=== PATIENT | male | born 1950 | race Caucasian/White ===

== ENCOUNTER 2021-01-23 10:40 | Outpatient (RCR) | payer MEDICARE ==
[2021-01-23 14:17] LABS: BASOPHILS # (AUTO) 0.1 (0.0-0.1); BASOPHILS % 0.9 % (0.0-1.0); EOSINOPHILS # (AUTO) 0.2 (0.0-0.4); HEMATOCRIT 31.1 % (38.2-49.6); LYMPHOCYTES # (AUTO) 1.8 (1.0-3.2); MEAN CORPUSCULAR HEMOGLOBIN 30.7 pg (28-32); MEAN CORPUSCULAR HGB CONC 32.2 g/dL (31-35); MEAN CORPUSCULAR VOLUME 95.4 fL (81-99); MONOCYTES # (AUTO) 0.9 (0.2-0.8); MONOCYTES % 13.3 % (4.4-11.3); NEUTROPHILS % 57.4 % (38.7-80.0); PLATELET COUNT 243 x10e3/uL (140-360); RED BLOOD COUNT 3.26 x10e6/uL (4.3-5.7); RED CELL DISTRIBUTION WIDTH 13.4 % (11.7-14.4)
[2021-01-23 14:35] LABS: ALBUMIN 3.8 g/dL (3.5-5.0); ANION GAP 13.9 mmol/L (8-16); CREATININE, SERUM 1.62 mg/dL (0.72-1.25); POTASSIUM 3.9 mmol/L (3.5-5.1)
[2021-01-23] MEDS ORDERED: MINERAL OIL/PETROLAT/GLYCERI 6OZ BTL ONE (16:25)
[2021-02-10] MEDS ORDERED: MINERAL OIL/PETROLAT/GLYCERI 6OZ BTL ONE (15:05)
== END 2021-01-24 ==
LOC: WCC 10:40
PROVIDERS: ATTEND Internal Medicine Infectious Disease
DX: I89.0 Lymphedema, not elsewhere classified (principal); R60.0 Localized edema; I10 Essential (primary) hypertension
CPT/HCPCS: 36415; 80053; 83036; 84134; 85025

== ENCOUNTER → 2021-02-09 | Outpatient (CLI) | payer MEDICARE | LOC: RAD 13:13 | PROVIDERS: ATTEND Internal Medicine Infectious Disease | DX: R60.0 Localized edema (principal) | CPT/HCPCS: 93925; 93970 ==

== ENCOUNTER 2021-02-10 10:35 | Outpatient (RCR) | payer MEDICARE | END 2021-02-24 | LOC: WCC 10:35 | PROVIDERS: ATTEND Internal Medicine Infectious Disease | DX: I89.0 Lymphedema, not elsewhere classified (principal); R60.0 Localized edema; G89.4 Chronic pain syndrome; N18.31 Chronic kidney disease, stage 3a; I10 Essential (primary) hypertension; J99 Respiratory disorders in diseases classified elsewhere; J43.9 Emphysema, unspecified; I50.9 Heart failure, unspecified; J40 Bronchitis, not specified as acute or chronic; G90.09 Other idiopathic peripheral autonomic neuropathy; E66.3 Overweight; F17.219 Nicotine dependence, cigarettes, with unspecified nicotine-induced disorders ==

== ENCOUNTER 2021-04-14 11:46 | Outpatient (RCR) | payer MEDICARE ==
[2021-04-07 12:02] LABS: BASOPHILS % 0.4 % (0.0-1.0); EOSINOPHILS # (AUTO) 0.1 (0.0-0.4); EOSINOPHILS % 0.7 % (0.0-6.0); HEMATOCRIT 35.3 % (38.2-49.6); HEMOGLOBIN 11.2 g/dL (14.0-18.0); LYMPHOCYTES # (AUTO) 1.8 (1.0-3.2); LYMPHOCYTES % 17.7 % (18.0-39.1); MEAN CORPUSCULAR HEMOGLOBIN 29.2 pg (28-32); MEAN CORPUSCULAR HGB CONC 31.7 g/dL (31-35); MEAN CORPUSCULAR VOLUME 92.2 fL (81-99); MONOCYTES # (AUTO) 1.1 (0.2-0.8); NEUTROPHILS # (AUTO) 6.9 (2.1-6.9); NEUTROPHILS % 69.5 % (38.7-80.0); PLATELET COUNT 310 x10e3/uL (140-360); RED BLOOD COUNT 3.83 x10e6/uL (4.3-5.7); RED CELL DISTRIBUTION WIDTH 12.6 % (11.7-14.4)
[2021-04-07 12:28] LABS: CREATININE, SERUM 1.56 mg/dL (0.72-1.25)
== END 2021-04-24 ==
LOC: WCC 11:46
PROVIDERS: ATTEND Internal Medicine Infectious Disease
DX: I70.239 Atherosclerosis of native arteries of right leg with ulceration of unspecified site (principal); L97.911 Non-pressure chronic ulcer of unspecified part of right lower leg limited to breakdown of skin; I82.491 Acute embolism and thrombosis of other specified deep vein of right lower extremity; L03.115 Cellulitis of right lower limb; J99 Respiratory disorders in diseases classified elsewhere; I70.203 Unspecified atherosclerosis of native arteries of extremities, bilateral legs; I89.0 Lymphedema, not elsewhere classified; R60.0 Localized edema; N18.31 Chronic kidney disease, stage 3a; I10 Essential (primary) hypertension; G89.4 Chronic pain syndrome; E66.3 Overweight; G90.09 Other idiopathic peripheral autonomic neuropathy; I50.9 Heart failure, unspecified; J43.9 Emphysema, unspecified; J45.998 Other asthma; F17.219 Nicotine dependence, cigarettes, with unspecified nicotine-induced disorders
CPT/HCPCS: 36415; 82565; 84520; 85025; 87071; 87075; 87186; 87205

== ENCOUNTER 2021-04-20 13:55 | Emergency (ER) | payer MEDICARE ==
[~2021-04-20] VITALS: Ht 175.3 cm; Wt 104.3 kg
[2021-04-20 16:13] LABS: BASOPHILS # (AUTO) 0.1 (0.0-0.1); BASOPHILS % 0.9 % (0.0-1.0); EOSINOPHILS # (AUTO) 0.2 (0.0-0.4); EOSINOPHILS % 2.8 % (0.0-6.0); HEMATOCRIT 34.6 % (38.2-49.6); HEMOGLOBIN 10.6 g/dL (14.0-18.0); LYMPHOCYTES # (AUTO) 2.3 (1.0-3.2); LYMPHOCYTES % 27.7 % (18.0-39.1); MEAN CORPUSCULAR HEMOGLOBIN 28.8 pg (28-32); MEAN CORPUSCULAR HGB CONC 30.6 g/dL (31-35); MONOCYTES # (AUTO) 0.8 (0.2-0.8); MONOCYTES % 10.1 % (4.4-11.3); NEUTROPHILS # (AUTO) 4.7 (2.1-6.9); NEUTROPHILS % 57.9 % (38.7-80.0); PLATELET COUNT 256 x10e3/uL (140-360); RED BLOOD COUNT 3.68 x10e6/uL (4.3-5.7); RED CELL DISTRIBUTION WIDTH 13.5 % (11.7-14.4)
[2021-04-20 16:21] LABS: INR 0.99; PARTIAL THROMBOPLASTIN TIME 25.7 seconds (23.8-35.5); PROTHROMBIN TIME 13.8 seconds (11.9-14.5)
[2021-04-20 16:31] LABS: ALBUMIN 3.4 g/dL (3.5-5.0); ALBUMIN/GLOBULIN RATIO 0.8 (0.8-2.0); ANION GAP 15.1 mmol/L (8-16); CALCIUM 9.2 mg/dL (8.4-10.2); CREATININE, SERUM 1.44 mg/dL (0.72-1.25); POTASSIUM 4.1 mmol/L (3.5-5.1)
== END 2021-04-20 17:52 | disposition home or self-care (01) ==
LOC: ER 13:55
DX: L03.115 Cellulitis of right lower limb (principal); M25.562 Pain in left knee; S86.812A Strain of other muscle(s) and tendon(s) at lower leg level, left leg, initial encounter; I10 Essential (primary) hypertension; J44.9 Chronic obstructive pulmonary disease, unspecified; J45.909 Unspecified asthma, uncomplicated; F17.210 Nicotine dependence, cigarettes, uncomplicated
CPT/HCPCS: 36415; 80053; 85025; 85610; 85730; 93971; 99283

== ENCOUNTER → 2021-04-20 | Outpatient (CLI) | payer MEDICARE ==
[~2021-04-20] MED LIST: SODIUM CHLORIDE 0.9% 500ML 500 ML ONE
[2021-04-20 13:03] LABS: CREATININE, SERUM 1.59 mg/dL (0.72-1.25)
== END ==
LOC: DX 11:58
PROVIDERS: ATTEND Internal Medicine Infectious Disease
DX: I70.203 Unspecified atherosclerosis of native arteries of extremities, bilateral legs (principal)
CPT/HCPCS: 36415; 36569; 71045; 82565; 84520; J7040

== ENCOUNTER 2021-05-08 13:28 | Outpatient (RCR) | payer MEDICARE ==
[2021-05-08] MEDS ORDERED: MINERAL OIL/PETROLAT/GLYCERI 6OZ BTL ONE (13:31)
== END 2021-05-25 ==
LOC: WCC 13:28
PROVIDERS: ATTEND Internal Medicine Infectious Disease
DX: L03.115 Cellulitis of right lower limb (principal); L97.911 Non-pressure chronic ulcer of unspecified part of right lower leg limited to breakdown of skin; I82.491 Acute embolism and thrombosis of other specified deep vein of right lower extremity; I89.0 Lymphedema, not elsewhere classified; I70.203 Unspecified atherosclerosis of native arteries of extremities, bilateral legs; I70.239 Atherosclerosis of native arteries of right leg with ulceration of unspecified site; R60.0 Localized edema; G89.4 Chronic pain syndrome; N18.31 Chronic kidney disease, stage 3a; B96.5 Pseudomonas (aeruginosa) (mallei) (pseudomallei) as the cause of diseases classified elsewhere; B96.89 Other specified bacterial agents as the cause of diseases classified elsewhere; E66.3 Overweight; G90.09 Other idiopathic peripheral autonomic neuropathy; I10 Essential (primary) hypertension; I50.9 Heart failure, unspecified; J99 Respiratory disorders in diseases classified elsewhere; J44.9 Chronic obstructive pulmonary disease, unspecified; J40 Bronchitis, not specified as acute or chronic; F17.219 Nicotine dependence, cigarettes, with unspecified nicotine-induced disorders

== ENCOUNTER 2021-06-09 09:59 | Outpatient (RCR) | payer MEDICARE ==
[~2021-06-09 09:59] MED LIST changes: +MINERAL OIL/PETROLAT/GLYCERI 2OZ CRM ONE; -SODIUM CHLORIDE 0.9% 500ML 500 ML ONE; +TRYPSIN/BALSAM PERU/CASTOR OIL ONE
== END 2021-06-24 ==
LOC: WCC 09:59
PROVIDERS: ATTEND Internal Medicine Infectious Disease
DX: L03.115 Cellulitis of right lower limb (principal); B96.5 Pseudomonas (aeruginosa) (mallei) (pseudomallei) as the cause of diseases classified elsewhere; B96.89 Other specified bacterial agents as the cause of diseases classified elsewhere; G90.09 Other idiopathic peripheral autonomic neuropathy; I82.491 Acute embolism and thrombosis of other specified deep vein of right lower extremity; I89.0 Lymphedema, not elsewhere classified; I70.203 Unspecified atherosclerosis of native arteries of extremities, bilateral legs; R60.0 Localized edema; G89.4 Chronic pain syndrome; N18.31 Chronic kidney disease, stage 3a; I10 Essential (primary) hypertension; I50.9 Heart failure, unspecified; J45.998 Other asthma; J99 Respiratory disorders in diseases classified elsewhere; E66.3 Overweight; J43.9 Emphysema, unspecified; F17.219 Nicotine dependence, cigarettes, with unspecified nicotine-induced disorders

== ENCOUNTER 2022-03-19 10:04 | Outpatient (RCR) | payer MEDICARE ==
[2022-03-19] MEDS ORDERED: LIDOCAINE VISC 2% SOLN 15 ML UDC ONE (12:40)
== END 2022-03-27 ==
LOC: WCC 10:04
PROVIDERS: ATTEND Internal Medicine Infectious Disease
DX: L89.612 Pressure ulcer of right heel, stage 2 (principal); I87.311 Chronic venous hypertension (idiopathic) with ulcer of right lower extremity; L97.811 Non-pressure chronic ulcer of other part of right lower leg limited to breakdown of skin; I82.491 Acute embolism and thrombosis of other specified deep vein of right lower extremity; I70.203 Unspecified atherosclerosis of native arteries of extremities, bilateral legs; I87.2 Venous insufficiency (chronic) (peripheral); R60.0 Localized edema; G89.4 Chronic pain syndrome; N18.31 Chronic kidney disease, stage 3a; I50.9 Heart failure, unspecified; I10 Essential (primary) hypertension; J99 Respiratory disorders in diseases classified elsewhere; J45.998 Other asthma; J44.9 Chronic obstructive pulmonary disease, unspecified; G90.09 Other idiopathic peripheral autonomic neuropathy; E66.3 Overweight; R26.89 Other abnormalities of gait and mobility; F17.219 Nicotine dependence, cigarettes, with unspecified nicotine-induced disorders

== ENCOUNTER 2022-04-13 11:59 | Outpatient (RCR) | payer MEDICARE ==
[2022-03-30 14:28] LABS: BASOPHILS % 0.3 % (0.0-1.0); EOSINOPHILS # (AUTO) 0.1 (0.0-0.4); HEMATOCRIT 35.7 % (38.2-49.6); LYMPHOCYTES # (AUTO) 1.3 (1.0-3.2); LYMPHOCYTES % 11.2 % (18.0-39.1); MEAN CORPUSCULAR HEMOGLOBIN 29.6 pg (28-32); MEAN CORPUSCULAR HGB CONC 30.8 g/dL (31-35); MONOCYTES # (AUTO) 1.5 (0.2-0.8); NEUTROPHILS # (AUTO) 8.5 (2.1-6.9); NEUTROPHILS % 73.8 % (38.7-80.0); PLATELET COUNT 332 x10e3/uL (140-360); RED BLOOD COUNT 3.72 x10e6/uL (4.3-5.7); RED CELL DISTRIBUTION WIDTH 13.1 % (11.7-14.4)
[2022-03-30 14:40] LABS: ALBUMIN 3.2 g/dL (3.5-5.0); ALBUMIN/GLOBULIN RATIO 0.7 (0.8-2.0); ANION GAP 14.6 mmol/L (8-16); CALCIUM 9.3 mg/dL (8.4-10.2); CREATININE, SERUM 1.66 mg/dL (0.72-1.25); POTASSIUM 4.6 mmol/L (3.5-5.1)
[~2022-04-13 11:59] MED LIST changes: +LIDOCAINE VISC 2% SOLN 15 ML UDC ONE; -MINERAL OIL/PETROLAT/GLYCERI 2OZ CRM ONE; +MINERAL OIL/PETROLAT/GLYCERI 6OZ BTL ONE; -TRYPSIN/BALSAM PERU/CASTOR OIL ONE
[2022-04-13] MEDS ORDERED: LIDOCAINE VISC 2% SOLN 15 ML UDC ONE (12:28)
== END 2022-04-24 ==
LOC: WCC 11:59
PROVIDERS: ATTEND Internal Medicine Infectious Disease
DX: I87.311 Chronic venous hypertension (idiopathic) with ulcer of right lower extremity (principal); L89.612 Pressure ulcer of right heel, stage 2; R60.0 Localized edema; G89.4 Chronic pain syndrome; I10 Essential (primary) hypertension; G90.09 Other idiopathic peripheral autonomic neuropathy; E66.3 Overweight; I50.9 Heart failure, unspecified; I70.203 Unspecified atherosclerosis of native arteries of extremities, bilateral legs; I82.491 Acute embolism and thrombosis of other specified deep vein of right lower extremity; I87.2 Venous insufficiency (chronic) (peripheral); L97.811 Non-pressure chronic ulcer of other part of right lower leg limited to breakdown of skin; J44.9 Chronic obstructive pulmonary disease, unspecified; J99 Respiratory disorders in diseases classified elsewhere; N18.31 Chronic kidney disease, stage 3a; J45.998 Other asthma; R26.89 Other abnormalities of gait and mobility; F17.219 Nicotine dependence, cigarettes, with unspecified nicotine-induced disorders
CPT/HCPCS: 36415; 80053; 84134; 85025

== ENCOUNTER 2022-05-11 14:28 | Outpatient (RCR) | payer MEDICARE ==
[~2022-05-11 14:28] MED LIST changes: +LIDOCAINE/PRILOCAINE 2.5-2.5% KIT ONE; -MINERAL OIL/PETROLAT/GLYCERI 6OZ BTL ONE
== END 2022-05-25 ==
LOC: WCC 14:28
PROVIDERS: ATTEND Internal Medicine Infectious Disease
DX: L89.612 Pressure ulcer of right heel, stage 2 (principal); I87.331 Chronic venous hypertension (idiopathic) with ulcer and inflammation of right lower extremity; L97.811 Non-pressure chronic ulcer of other part of right lower leg limited to breakdown of skin; R60.0 Localized edema
CPT/HCPCS: 87071; 87075; 87186; 87205